=== PATIENT | female | born 1990 | race Caucasian/White ===

== ENCOUNTER 2016-06-30 19:47 | Emergency (ER) | payer OTHER ==
[~2016-06-30] VITALS: Ht 157.5 cm; Wt 47.7 kg
[2016-06-30 20:42] LABS: BASO % 0.2 % (0.0-2.0); EOS # 0.5 (0.0-0.7); EOS % 5.7 % (0-4.0); GRAN % 44.7 % (42.2-75.2); HEMATOCRIT 37.4 % (37.0-47.0); HEMOGLOBIN 12.8 g/dl (12.5-16.0); LYMPH # 3.8 (1.2-3.4); LYMPH % 42.4 % (20.0-51.0); MEAN CELL VOLUME 89 fl (80.0-100.0); MEAN CORPUSCULAR HEMOGLOBIN 30 pg (27.0-31.0); MEAN CORPUSCULAR HGB CONC 34 g/dl (33.0-37.0); MEAN PLATELET VOLUME 12.2 fl (7.4-10.4); MONO # 0.6 (0.1-0.6); MONO % 6.8 % (1.7-9.3); PLATELET COUNT 202 K/mm3 (130-400); RED BLOOD COUNT 4.21 M/mm3 (4.10-5.30); REDCELL DISTRIBUTION WIDTH-CV 12.7 % (11.5-14.5); WHITE BLOOD COUNT 8.8 K/mm3 (4.8-10.8)
[2016-06-30] MEDS ORDERED: [UNRECOGNIZED DRUG - OTHER] TP (20:46)
[2016-06-30] MEDS ORDERED: ESTRACE2 MG PO (20:46)
[2016-06-30] MEDS ORDERED: LOVENOX 3030 MG/0.3 (20:46)
[2016-06-30] MEDS ORDERED: RT ADVAIR HFA 412 GM IH (20:47)
[2016-06-30] MEDS ORDERED: [UNRECOGNIZED DRUG - OTHER] VG (20:47)
[2016-06-30] MEDS ORDERED: FLONASE NASAL S16 GM NS (20:47)
[2016-06-30] MEDS ORDERED: PROTONIX 40MG T40 MG PO (20:47)
[2016-06-30] MEDS ORDERED: DOXYCYCLINE 10100 MG PO (20:48)
[2016-06-30 21:40] LABS: PH 6 (5-8); SQUAMOUS EPITHELIAL 0-2 /hpf; URINE APPEARANCE Clear; URINE BACTERIA Rare /hpf; URINE BILIRUBIN Negative (NEGATIVE); URINE BLOOD Negative (NEGATIVE); URINE COLOR Straw; URINE GLUCOSE Negative (NEGATIVE); URINE KETONE Negative (NEGATIVE); URINE RBC None Seen /hpf; URINE UROBILINOGEN Negative (NEGATIVE)
[2016-07-01 02:09] VITALS: BP 119/67; PULSE 70; TEMP 98.9
== END 2016-07-01 02:10 | disposition home or self-care (01) ==
LOC: COL.ER 19:47
PROVIDERS: Emergency Medicine
DX: O20.0 Threatened abortion (principal); Z3A.01 Less than 8 weeks gestation of pregnancy; O09.811 Supervision of pregnancy resulting from assisted reproductive technology, first trimester; O30.041 Twin pregnancy, dichorionic/diamniotic, first trimester
CPT/HCPCS: J2791

== ENCOUNTER 2016-07-12 13:48 | Emergency (ER) | payer OTHER ==
[~2016-07-12] VITALS: Ht 157.5 cm; Wt 47.7 kg
[~2016-07-12 13:48] MED LIST: DOXYCYCLINE 10100 MG PO; ESTRACE2 MG PO; FLONASE NASAL S16 GM NS; LOVENOX 3030 MG/0.3; PROTONIX 40MG T40 MG PO; RT ADVAIR HFA 412 GM IH; [UNRECOGNIZED DRUG - OTHER] TP; [UNRECOGNIZED DRUG - OTHER] VG
[2016-07-12 13:50] VITALS: TEMP 97.9
[2016-07-12] MEDS ORDERED: PULMICORT90 MCG/Act IH (13:54)
[2016-07-12] MEDS ORDERED: FOLTANX (13:56)
[2016-07-12] MEDS ORDERED: DHEA 10 MG TAB1 EACH (13:56)
[2016-07-12] MEDS ORDERED: ASPIRIN 81M81 MG/TA2 PO (13:56)
[2016-07-12 14:38] LABS: PH 5 (5-8); SQUAMOUS EPITHELIAL 0-2 /hpf; URINE APPEARANCE Hazy; URINE BACTERIA Rare /hpf; URINE BILIRUBIN Negative (NEGATIVE); URINE BLOOD 3+ (NEGATIVE); URINE COLOR Yellow; URINE GLUCOSE Negative (NEGATIVE); URINE KETONE Negative (NEGATIVE); URINE UROBILINOGEN Negative (NEGATIVE)
[2016-07-12 16:15] VITALS: BP 124/71; PULSE 71
== END 2016-07-12 16:05 | disposition home or self-care (01) ==
LOC: COL.ER 13:48
PROVIDERS: Emergency Medicine
DX: O20.0 Threatened abortion (principal); O30.041 Twin pregnancy, dichorionic/diamniotic, first trimester; Z3A.01 Less than 8 weeks gestation of pregnancy

== ENCOUNTER 2016-09-20 11:12 | Emergency (ER) | payer OTHER ==
[~2016-09-20] VITALS: Ht 157.5 cm; Wt 51.8 kg
[~2016-09-20 11:12] MED LIST changes: +ASPIRIN 81M81 MG/TA2 PO; +DHEA 10 MG TAB1 EACH; +FOLTANX; +PULMICORT90 MCG/Act IH
[2016-09-20 11:14] VITALS: TEMP 98.2
[2016-09-20 11:57] LABS: PH 8 (5-8); URINE APPEARANCE Cloudy; URINE BILIRUBIN Negative (NEGATIVE); URINE BLOOD 1+ (NEGATIVE); URINE COLOR Yellow; URINE GLUCOSE Negative (NEGATIVE); URINE KETONE Negative (NEGATIVE); URINE RBC 0-2 /hpf; URINE UROBILINOGEN Negative (NEGATIVE)
[2016-09-20 11:58] LABS: URINE BACTERIA Moderate /hpf
[2016-09-20 12:07] LABS: BASO % 0.3 % (0.0-2.0); EOS # 0.2 (0.0-0.7); EOS % 1.4 % (0-4.0); GRAN # 9.7 (1.4-6.5); GRAN % 73.2 % (42.2-75.2); LYMPH # 2.3 (1.2-3.4); LYMPH % 17.3 % (20.0-51.0); MEAN CELL VOLUME 91 fl (80.0-100.0); MEAN CORPUSCULAR HGB CONC 34 g/dl (33.0-37.0); MONO # 0.9 (0.1-0.6); MONO % 7.1 % (1.7-9.3); PLATELET COUNT 157 K/mm3 (130-400); RED BLOOD COUNT 3.76 M/mm3 (4.10-5.30); REDCELL DISTRIBUTION WIDTH-CV 13.5 % (11.5-14.5); WHITE BLOOD COUNT 13.2 K/mm3 (4.8-10.8)
[2016-09-20 12:13] LABS: HEMATOCRIT 34.1 % (37.0-47.0); HEMOGLOBIN 11.7 g/dl (12.5-16.0); MEAN CORPUSCULAR HEMOGLOBIN 31 pg (27.0-31.0)
[2016-09-20 12:26] LABS: ADJUSTED CALCIUM 9.3 mg/dL (8.4-10.2); ALBUMIN 3.2 gm/dL (3.5-5.0); BILIRUBIN,TOTAL 0.6 mg/dL (0.0-1.0); CALCIUM 8.7 mg/dL (8.4-10.2); CREATININE, serum 0.51 mg/dL (0.52-1.25); POTASSIUM 3.5 mmol/L (3.4-5.0); TOTAL PROTEIN 6.2 gm/dL (6.4-8.2)
[2016-09-20] MEDS ORDERED: CEFTIN500 MG PO (14:04)
[2016-09-20] MEDS ORDERED: NORCO 325 MG-51 TAB PO (14:08)
[2016-09-20 14:44] VITALS: BP 109/58; PULSE 69
== END 2016-09-20 14:45 | disposition home or self-care (01) ==
LOC: COL.ER 11:12
PROVIDERS: Physician Assistant
DX: O23.02 Infections of kidney in pregnancy, second trimester (principal); O30.002 Twin pregnancy, unspecified number of placenta and unspecified number of amniotic sacs, second trimester; Z3A.17 17 weeks gestation of pregnancy; O09.812 Supervision of pregnancy resulting from assisted reproductive technology, second trimester
CPT/HCPCS: J0696; J7030

== ENCOUNTER 2017-01-10 16:01 | Outpatient (CLI) | payer OTHER ==
[~2017-01-10] VITALS: Ht 160 cm; Wt 61.8 kg
[~2017-01-10 16:01] MED LIST changes: +CEFTIN500 MG PO; +NORCO 325 MG-51 TAB PO
[2017-01-10] MEDS ORDERED: PRENATAL PO (16:20)
[2017-01-10] MEDS ORDERED: ASPIRIN 81M81 MG/TA2 PO (16:21)
[2017-01-10 17:20] VITALS: BP 120/62; PULSE 69
[2017-01-10 17:36] VITALS: BP 112/67; PULSE 76; TEMP 98.1
== END 2017-01-10 21:00 | disposition home or self-care (01) ==
LOC: LDRO 16:01
DX: O36.8130 Decreased fetal movements, third trimester, not applicable or unspecified (principal); O30.003 Twin pregnancy, unspecified number of placenta and unspecified number of amniotic sacs, third trimester; Z3A.33 33 weeks gestation of pregnancy
CPT/HCPCS: J0702; J7120

== ENCOUNTER 2017-01-19 12:00 | Outpatient (CLI) | payer OTHER ==
[~2017-01-19] VITALS: Ht 160 cm; Wt 62.3 kg
[~2017-01-19 12:00] MED LIST changes: +PRENATAL PO
[2017-01-19 12:14] VITALS: BP 128/83; PULSE 76; TEMP 98.8
[2017-01-19] MEDS ORDERED: FOLTANX (12:14)
[2017-01-19 12:30] VITALS: BP 132/78; PULSE 75
[2017-01-19 13:00] VITALS: BP 121/74; PULSE 86
[2017-01-19 13:14] LABS: HEMOGLOBIN 12.2 g/dl (12.5-16.0); MEAN CELL VOLUME 95 fl (80.0-100.0); MEAN CORPUSCULAR HEMOGLOBIN 33 pg (27.0-31.0); MEAN CORPUSCULAR HGB CONC 34 g/dl (33.0-37.0); MEAN PLATELET VOLUME 12.9 fl (7.4-10.4); PLATELET COUNT 120 K/mm3 (130-400); RED BLOOD COUNT 3.74 M/mm3 (4.10-5.30); REDCELL DISTRIBUTION WIDTH-CV 13.3 % (11.5-14.5); WHITE BLOOD COUNT 11.8 K/mm3 (4.8-10.8)
[2017-01-19 13:17] LABS: HEMATOCRIT 35.6 % (37.0-47.0)
[2017-01-19 13:18] LABS: ADD PATHOLOGY DIFF REVIEW NO
[2017-01-19 13:43] LABS: BAND 22 % (0-10); EOSINOPHIL 1 % (0-4); NEUTROPHILS 47 % (42.0-75.2); TOTAL CELLS COUNTED 100
[2017-01-19 13:46] LABS: PLATELET ESTIMATE DECREASED (NORMAL)
== END 2017-01-19 13:25 | disposition short-term general hospital (02) ==
LOC: LDRO 12:00 → LDR 12:05 → LDRO 13:25 → LDR 13:25 → EDSTATUS 14:58
PROVIDERS: Obstetrics & Gynecology
DX: O42.913 Preterm premature rupture of membranes, unspecified as to length of time between rupture and onset of labor, third trimester (principal); Z3A.34 34 weeks gestation of pregnancy
CPT/HCPCS: J7120

== ENCOUNTER 2018-02-18 08:33 | Emergency (ER) | payer OTHER ==
[~2018-02-18] VITALS: Ht 157.5 cm; Wt 44.1 kg
[2018-02-18] MEDS ORDERED: RT ADVAIR HFA 412 GM IH (08:43)
[2018-02-18] MEDS ORDERED: FLONASE NASAL S16 GM NS (08:44)
[2018-02-18] MEDS ORDERED: METANX 2.8 MG-21 TA1 PO (08:45)
[2018-02-18] MEDS ORDERED: MULTI VITAMINS1 TAB PO (08:45)
[2018-02-18 09:28] LABS: COLLECTION METHOD CLEAN CATCH
[2018-02-18 09:44] LABS: MUCOUS Present /lpf; PH 5 (5-8); SQUAMOUS EPITHELIAL 0-2 /hpf; URINE APPEARANCE Hazy; URINE BACTERIA None Seen /hpf; URINE BILIRUBIN Negative (NEGATIVE); URINE BLOOD 2+ (NEGATIVE); URINE COLOR Yellow; URINE GLUCOSE Negative (NEGATIVE); URINE KETONE Trace (NEGATIVE); URINE LEUKOCYTE ESTERASE 3+ (NEGATIVE); URINE NITRATE Negative (NEGATIVE); URINE PROTEIN(semi-quant) 2+ (NEGATIVE); URINE RBC 20-50 /hpf; URINE UROBILINOGEN Negative (NEGATIVE)
[2018-02-18 09:56] LABS: BASO % 0.2 % (0.0-2.0); EOS # 0.2 (0.0-0.7); EOS % 2.2 % (0-4.0); GRAN # 7.3 (1.4-6.5); GRAN % 74.5 % (42.2-75.2); HEMOGLOBIN 11.6 g/dl (12.5-16.0); LYMPH # 1.2 (1.2-3.4); LYMPH % 12.3 % (20.0-51.0); MEAN CELL VOLUME 89 fl (80.0-100.0); MEAN CORPUSCULAR HEMOGLOBIN 30 pg (27.0-31.0); MEAN CORPUSCULAR HGB CONC 33 g/dl (33.0-37.0); MEAN PLATELET VOLUME 11.3 fl (7.4-10.4); MONO % 10.4 % (1.7-9.3); PLATELET COUNT 163 K/mm3 (130-400); RED BLOOD COUNT 3.92 M/mm3 (4.10-5.30); REDCELL DISTRIBUTION WIDTH-CV 13.4 % (11.5-14.5)
[2018-02-18 10:14] LABS: ALBUMIN 3.7 gm/dL (3.5-5.0); BILIRUBIN,TOTAL 0.4 mg/dL (0.0-1.0); CALCIUM 8.6 mg/dL (8.4-10.2); CREATININE, serum 0.59 mg/dL (0.52-1.25); POTASSIUM 3.2 mmol/L (3.4-5.0); TOTAL PROTEIN 6.9 gm/dL (6.4-8.2)
[2018-02-18 10:40] LABS: TSH w REFLEX 0.738 uIU/mL (0.465-4.680)
[2018-02-18 11:04] VITALS: BP 112/70; TEMP 98.3
[2018-02-18] MEDS ORDERED: OMNICEF 300MG300 MG PO (11:05)
[2018-02-18 11:32] VITALS: PULSE 87
== END 2018-02-18 11:33 | disposition home or self-care (01) ==
LOC: COL.ER 08:33
PROVIDERS: Physician Assistant
DX: N39.0 Urinary tract infection, site not specified (principal); R10.813 Right lower quadrant abdominal tenderness; K21.9 Gastro-esophageal reflux disease without esophagitis; J45.909 Unspecified asthma, uncomplicated; Z98.890 Other specified postprocedural states; Z88.2 Allergy status to sulfonamides; Z79.51 Long term (current) use of inhaled steroids